=== PATIENT | male | born 1950 | race Asian ===

== ENCOUNTER 2017-06-19 13:25 | Inpatient (IN) | payer MEDICARE, MEDICAID ==
[~2017-06-19] VITALS: Ht 160 cm; Wt 60.6 kg
[2017-06-19] MEDS ORDERED: HALOPERIDOL 5 MG TABLET PO PRN (20:00)
[2017-06-19] MEDS ORDERED: LORazepam 2 MG TABLET PO PRN (20:00)
[2017-06-19 20:56] VITALS: BP 149/84
[2017-06-19 21:46] VITALS: BP 149/84
[2017-06-20 06:10] VITALS: BP 140/76
[2017-06-20 08:08] VITALS: BP 143/77
[2017-06-20 08:18] LABS: BASOPHILS % (AUTO) 0.9 % (0.0-2.0); HEMATOCRIT 27.4 % (41-53); HEMOGLOBIN 8.6 g/dL (13.5-17.5); LYMPHOCYTES # (AUTO) 1.7 K/uL (1.0-4.8); LYMPHOCYTES % (AUTO) 28.2 % (22.0-44.0); MEAN CORPUSCULAR HEMOGLOBIN 22.7 pg (26.0-34.0); MEAN CORPUSCULAR HGB CONC 31.5 G/dL (31.0-37.0); MEAN CORPUSCULAR VOLUME 72 fL (80-100); MONOCYTES # (AUTO) 0.6 K/uL (0.1-1.0); MONOCYTES % (AUTO) 9.3 % (2.0-9.0); NEUTROPHILS # (AUTO) 3.2 K/uL (1.8-7.7); NEUTROPHILS % (AUTO) 52.6 % (40.0-70.0); PLATELET COUNT (AUTO) 305 K/uL (150-450); RED CELL DISTRIBUTION WIDTH 21.4 % (11.5-14.5)
[2017-06-20 08:51] LABS: BILIRUBIN,TOTAL 0.5 mg/dL (0.1-1.0); CALCIUM, TOTAL 8.8 mg/dL (8.8-10.5); CHOL/HDL RATIO 2.8 (4.2-7.3); CREATININE 1.75 mg/dL (0.60-1.30); POTASSIUM 4.3 mmol/L (3.5-5.1); THYROID STIMULATING HORMONE 5.4 uIU/mL (0.36-3.74); TOTAL PROTEIN, SERUM 7.7 g/dL (6.4-8.2)
[2017-06-20 09:09] LABS: HEMOGLOBIN A1C 5.1 % (4.5-6.2)
[2017-06-20] MEDS: LISINOPRIL 10 MG TABLET PO SCH (09:20)
[2017-06-20] MEDS: OMEPRAZOLE 20 MG CAPSULE PO SCH (09:20)
[2017-06-20 10:44] LABS: RBC MORPHOLOGY COMMENT ABNORMAL RBC MORPH
[2017-06-20] MEDS ORDERED: ONDANSETRON HCL 4 MG TABLET PO PRN (10:45)
[2017-06-20] MEDS ORDERED: BENZOCAINE/MENTHOL LOZENGE MM PRN (10:45)
[2017-06-20] MEDS ORDERED: MAGNESIUM HYDROXIDE SUSPENSION 30 ML UDCUP PO PRN (10:45)
[2017-06-20] MEDS ORDERED: MAG HYDROX/AL HYDROX/SIMETH ES 30 ML SUSPENSION UDCUP PO PRN (10:45)
[2017-06-20] MEDS ORDERED: LOPERAMIDE HCL 2 MG CAPSULE PO PRN (10:45)
[2017-06-20] MEDS ORDERED: CloNIDine HCL 0.1 MG TABLET PO PRN (10:45)
[2017-06-20] MEDS ORDERED: BACITRACIN 28.4 GM OINTMENT TP PRN (10:45)
[2017-06-20] MEDS ORDERED: PETROLATUM,WHITE 71 GM JELLY TP PRN (10:45)
[2017-06-20] MEDS ORDERED: ALBUTEROL SULFATE HFA 90 MCG/PUFF 8 GM INHALER IH PRN (10:45)
[2017-06-20 16:22] VITALS: BP 138/69
[2017-06-21 00:10] VITALS: BP 136/77
[2017-06-21 06:10] VITALS: BP 132/79
[2017-06-21] MEDS: IBUPROFEN 600 MG TABLET PO PRN ×2 (06:15→21:11)
[2017-06-21] MEDS: LEVOTHYROXINE SODIUM 25 MCG TABLET PO SCH (06:38)
[2017-06-21 08:32] VITALS: BP 146/78
[2017-06-21 08:33] LABS: CALCIUM, TOTAL 8.5 mg/dL (8.8-10.5); CREATININE 1.71 mg/dL (0.60-1.30); POTASSIUM 3.9 mmol/L (3.5-5.1)
[2017-06-21] MEDS: OMEPRAZOLE 20 MG CAPSULE PO SCH (09:47)
[2017-06-21] MEDS: MULTIVITAMINS WITH MINERALS, THERAPEUTIC TABLET PO SCH (09:47)
[2017-06-21] MEDS: LISINOPRIL 10 MG TABLET PO SCH (09:47)
[2017-06-21 16:00] VITALS: BP 142/90
[2017-06-21 22:15] VITALS: BP 143/85
[2017-06-22 04:07] VITALS: BP 138/74
[2017-06-22] MEDS: IBUPROFEN 600 MG TABLET PO PRN ×2 (04:16→22:29)
[2017-06-22] MEDS: LEVOTHYROXINE SODIUM 25 MCG TABLET PO SCH (06:36)
[2017-06-22] MEDS: FERROUS SULFATE 325 MG EC TABLET PO SCH ×2 (06:36→16:07)
[2017-06-22 08:02] VITALS: BP 132/82
[2017-06-22 08:04] LABS: ALBUMIN 2.7 g/dL (3.4-5.0); CALCIUM, TOTAL 8.2 mg/dL (8.8-10.5); CREATININE 1.7 mg/dL (0.60-1.30); PHOSPHORUS 3.2 mg/dL (2.5-4.9); POTASSIUM 4.8 mmol/L (3.5-5.1)
[2017-06-22] MEDS: DIVALPROEX SODIUM 500 MG DR TABLET PO SCH ×2 (09:24→16:07)
[2017-06-22] MEDS: RisperiDONE 0.5 MG TABLET PO SCH ×2 (09:25→16:07)
[2017-06-22] MEDS: OMEPRAZOLE 20 MG CAPSULE PO SCH (09:25)
[2017-06-22] MEDS: MULTIVITAMINS WITH MINERALS, THERAPEUTIC TABLET PO SCH (09:25)
[2017-06-22] MEDS: LISINOPRIL 10 MG TABLET PO SCH (09:25)
[2017-06-22 17:58] VITALS: BP 127/75
[2017-06-22 22:30] VITALS: BP 130/79
[2017-06-23 03:41] VITALS: BP 146/79
[2017-06-23] MEDS: ACETAMINOPHEN 325 MG TABLET PO PRN ×2 (03:43→22:33)
[2017-06-23] MEDS: FERROUS SULFATE 325 MG EC TABLET PO SCH ×2 (06:11→16:32)
[2017-06-23] MEDS: LEVOTHYROXINE SODIUM 25 MCG TABLET PO SCH (06:11)
[2017-06-23 08:30] VITALS: BP 115/73
[2017-06-23] MEDS: OMEPRAZOLE 20 MG CAPSULE PO SCH (09:58)
[2017-06-23] MEDS: LISINOPRIL 10 MG TABLET PO SCH (09:59)
[2017-06-23] MEDS: RisperiDONE 1 MG TABLET PO SCH ×2 (09:59→16:32)
[2017-06-23] MEDS: DIVALPROEX SODIUM 500 MG DR TABLET PO SCH ×2 (09:59→16:32)
[2017-06-23] MEDS: MULTIVITAMINS WITH MINERALS, THERAPEUTIC TABLET PO SCH (09:59)
[2017-06-23] MEDS: IBUPROFEN 600 MG TABLET PO PRN (14:08)
[2017-06-23 14:09] VITALS: BP 120/76
[2017-06-23 16:31] VITALS: BP 115/65
[2017-06-24 01:51] VITALS: BP 138/87
[2017-06-24] MEDS: IBUPROFEN 600 MG TABLET PO PRN ×3 (01:56→18:47)
[2017-06-24] MEDS: LEVOTHYROXINE SODIUM 25 MCG TABLET PO SCH (06:39)
[2017-06-24] MEDS: FERROUS SULFATE 325 MG EC TABLET PO SCH ×2 (06:39→16:36)
[2017-06-24 08:40] VITALS: BP 138/72
[2017-06-24] MEDS: OMEPRAZOLE 20 MG CAPSULE PO SCH (08:42)
[2017-06-24] MEDS: DIVALPROEX SODIUM 500 MG DR TABLET PO SCH ×2 (08:42→16:36)
[2017-06-24] MEDS: LISINOPRIL 10 MG TABLET PO SCH (08:42)
[2017-06-24] MEDS: RisperiDONE 1 MG TABLET PO SCH ×2 (08:42→16:36)
[2017-06-24] MEDS: MULTIVITAMINS WITH MINERALS, THERAPEUTIC TABLET PO SCH (08:42)
[2017-06-24 12:12] VITALS: BP 140/70
[2017-06-24 16:30] VITALS: BP 142/80
[2017-06-25 01:20] VITALS: BP 115/74
[2017-06-25] MEDS: IBUPROFEN 600 MG TABLET PO PRN ×2 (01:25→08:51)
[2017-06-25 04:45] VITALS: BP 115/74
[2017-06-25] MEDS: LEVOTHYROXINE SODIUM 25 MCG TABLET PO SCH (06:37)
[2017-06-25] MEDS: FERROUS SULFATE 325 MG EC TABLET PO SCH ×2 (06:37→16:39)
[2017-06-25 08:07] VITALS: BP 132/72
[2017-06-25] MEDS: RisperiDONE 1 MG TABLET PO SCH ×2 (08:50→16:39)
[2017-06-25] MEDS: MULTIVITAMINS WITH MINERALS, THERAPEUTIC TABLET PO SCH (08:50)
[2017-06-25] MEDS: DIVALPROEX SODIUM 500 MG DR TABLET PO SCH ×2 (08:50→16:39)
[2017-06-25] MEDS: OMEPRAZOLE 20 MG CAPSULE PO SCH (08:50)
[2017-06-25] MEDS: LISINOPRIL 10 MG TABLET PO SCH (08:50)
[2017-06-25] MEDS: ACETAMINOPHEN 325 MG TABLET PO PRN (13:13)
[2017-06-25 13:14] VITALS: BP 130/76
[2017-06-25 16:00] VITALS: BP 140/78
[2017-06-26 02:10] VITALS: BP 117/75
[2017-06-26] MEDS: IBUPROFEN 600 MG TABLET PO PRN ×3 (02:13→21:25)
[2017-06-26] MEDS: LEVOTHYROXINE SODIUM 25 MCG TABLET PO SCH (05:55)
[2017-06-26] MEDS: FERROUS SULFATE 325 MG EC TABLET PO SCH ×2 (05:56→16:42)
[2017-06-26 08:34] VITALS: BP 144/68
[2017-06-26] MEDS: LISINOPRIL 10 MG TABLET PO SCH (08:41)
[2017-06-26] MEDS: DIVALPROEX SODIUM 500 MG DR TABLET PO SCH ×2 (08:41→16:41)
[2017-06-26] MEDS: MULTIVITAMINS WITH MINERALS, THERAPEUTIC TABLET PO SCH (08:41)
[2017-06-26] MEDS: OMEPRAZOLE 20 MG CAPSULE PO SCH (08:41)
[2017-06-26] MEDS: RisperiDONE 1 MG TABLET PO SCH ×2 (08:41→16:41)
[2017-06-26 11:16] VITALS: BP 124/83
[2017-06-26 12:16] VITALS: BP 120/75
[2017-06-26 16:31] VITALS: BP 133/81
[2017-06-27 03:49] VITALS: BP 124/78
[2017-06-27] MEDS: IBUPROFEN 600 MG TABLET PO PRN ×3 (03:51→16:36)
[2017-06-27] MEDS: FERROUS SULFATE 325 MG EC TABLET PO SCH ×2 (06:27→16:37)
[2017-06-27] MEDS: LEVOTHYROXINE SODIUM 25 MCG TABLET PO SCH (06:27)
[2017-06-27] MEDS: RisperiDONE 1 MG TABLET PO SCH ×2 (08:26→16:37)
[2017-06-27] MEDS: LISINOPRIL 10 MG TABLET PO SCH (08:26)
[2017-06-27] MEDS: OMEPRAZOLE 20 MG CAPSULE PO SCH (08:26)
[2017-06-27] MEDS: DIVALPROEX SODIUM 500 MG DR TABLET PO SCH ×2 (08:26→16:36)
[2017-06-27] MEDS: MULTIVITAMINS WITH MINERALS, THERAPEUTIC TABLET PO SCH (08:27)
[2017-06-27 09:26] VITALS: BP 122/75
[2017-06-27 16:30] VITALS: BP 131/81
[2017-06-27] MEDS: ZOLPIDEM TARTRATE 10 MG TABLET PO PRN (20:55)
[2017-06-27] MEDS: ACETAMINOPHEN 325 MG TABLET PO PRN (20:55)
[2017-06-28 01:01] VITALS: BP 125/77
[2017-06-28] MEDS: IBUPROFEN 600 MG TABLET PO PRN ×3 (02:26→18:35)
[2017-06-28] MEDS: FERROUS SULFATE 325 MG EC TABLET PO SCH ×2 (06:36→17:09)
[2017-06-28] MEDS: LEVOTHYROXINE SODIUM 25 MCG TABLET PO SCH (06:36)
[2017-06-28] MEDS: OMEPRAZOLE 20 MG CAPSULE PO SCH (08:04)
[2017-06-28] MEDS: LISINOPRIL 10 MG TABLET PO SCH (08:05)
[2017-06-28] MEDS: DIVALPROEX SODIUM 500 MG DR TABLET PO SCH ×2 (08:05→17:08)
[2017-06-28] MEDS: MULTIVITAMINS WITH MINERALS, THERAPEUTIC TABLET PO SCH (08:05)
[2017-06-28] MEDS: RisperiDONE 1 MG TABLET PO SCH ×2 (08:05→17:08)
[2017-06-28 08:58] VITALS: BP 137/77
[2017-06-28 16:26] VITALS: BP 130/73
[2017-06-28] MEDS: ZOLPIDEM TARTRATE 10 MG TABLET PO PRN (22:10)
[2017-06-29 01:15] VITALS: BP 136/78
[2017-06-29 03:14] VITALS: BP 133/83
[2017-06-29] MEDS: IBUPROFEN 600 MG TABLET PO PRN ×2 (03:18→10:28)
[2017-06-29] MEDS: LEVOTHYROXINE SODIUM 25 MCG TABLET PO SCH (06:39)
[2017-06-29] MEDS: FERROUS SULFATE 325 MG EC TABLET PO SCH ×2 (06:39→17:00)
[2017-06-29 08:07] VITALS: BP 138/75
[2017-06-29] MEDS: OMEPRAZOLE 20 MG CAPSULE PO SCH (09:17)
[2017-06-29] MEDS: RisperiDONE 1 MG TABLET PO SCH ×2 (09:17→17:00)
[2017-06-29] MEDS: LISINOPRIL 10 MG TABLET PO SCH (09:17)
[2017-06-29] MEDS: MULTIVITAMINS WITH MINERALS, THERAPEUTIC TABLET PO SCH (09:17)
[2017-06-29] MEDS: DIVALPROEX SODIUM 500 MG DR TABLET PO SCH ×2 (09:17→17:00)
[2017-06-29 16:34] VITALS: BP 125/70
[2017-06-30 01:08] VITALS: BP 133/81
[2017-06-30] MEDS: IBUPROFEN 600 MG TABLET PO PRN (01:11)
[2017-06-30] MEDS: FERROUS SULFATE 325 MG EC TABLET PO SCH ×2 (06:02→17:12)
[2017-06-30] MEDS: LEVOTHYROXINE SODIUM 25 MCG TABLET PO SCH (06:02)
[2017-06-30 08:44] VITALS: BP 146/79
[2017-06-30] MEDS: DIVALPROEX SODIUM 500 MG DR TABLET PO SCH ×2 (09:08→17:12)
[2017-06-30] MEDS: RisperiDONE 1 MG TABLET PO SCH ×2 (09:08→17:12)
[2017-06-30] MEDS: OMEPRAZOLE 20 MG CAPSULE PO SCH (09:08)
[2017-06-30] MEDS: LISINOPRIL 10 MG TABLET PO SCH (09:08)
[2017-06-30] MEDS: MULTIVITAMINS WITH MINERALS, THERAPEUTIC TABLET PO SCH (09:08)
[2017-06-30 16:09] VITALS: BP 118/82
[2017-07-01] VITALS: BP 103/71
[2017-07-01] MEDS: IBUPROFEN 600 MG TABLET PO PRN ×3 (00:01→20:29)
[2017-07-01] MEDS: LEVOTHYROXINE SODIUM 25 MCG TABLET PO SCH (06:34)
[2017-07-01] MEDS: FERROUS SULFATE 325 MG EC TABLET PO SCH ×2 (06:34→17:20)
[2017-07-01 08:11] VITALS: BP 128/74
[2017-07-01] MEDS: RisperiDONE 1 MG TABLET PO SCH ×2 (08:45→17:20)
[2017-07-01] MEDS: DIVALPROEX SODIUM 500 MG DR TABLET PO SCH ×2 (08:45→17:20)
[2017-07-01] MEDS: LISINOPRIL 10 MG TABLET PO SCH (08:45)
[2017-07-01] MEDS: MULTIVITAMINS WITH MINERALS, THERAPEUTIC TABLET PO SCH (08:45)
[2017-07-01] MEDS: OMEPRAZOLE 20 MG CAPSULE PO SCH (08:45)
[2017-07-01 16:13] VITALS: BP 136/80
[2017-07-02 03:32] VITALS: BP 130/68
[2017-07-02] MEDS: IBUPROFEN 600 MG TABLET PO PRN ×2 (03:35→15:15)
[2017-07-02] MEDS: FERROUS SULFATE 325 MG EC TABLET PO SCH ×2 (06:53→16:54)
[2017-07-02] MEDS: LEVOTHYROXINE SODIUM 25 MCG TABLET PO SCH (06:53)
[2017-07-02] MEDS: LISINOPRIL 10 MG TABLET PO SCH (08:28)
[2017-07-02] MEDS: RisperiDONE 1 MG TABLET PO SCH ×2 (08:28→16:54)
[2017-07-02] MEDS: MULTIVITAMINS WITH MINERALS, THERAPEUTIC TABLET PO SCH (08:28)
[2017-07-02] MEDS: DIVALPROEX SODIUM 500 MG DR TABLET PO SCH ×2 (08:28→16:54)
[2017-07-02] MEDS: OMEPRAZOLE 20 MG CAPSULE PO SCH (08:28)
[2017-07-02 08:34] VITALS: BP 139/67
[2017-07-02 09:30] LABS: CALCIUM, TOTAL 8.3 mg/dL (8.8-10.5); CREATININE 1.99 mg/dL (0.60-1.30); POTASSIUM 5.1 mmol/L (3.5-5.1)
[2017-07-02 16:53] VITALS: BP 147/77
[2017-07-03] MEDS: IBUPROFEN 600 MG TABLET PO PRN ×3 (00:02→16:17)
[2017-07-03 03:53] VITALS: BP 112/70
[2017-07-03] MEDS: FERROUS SULFATE 325 MG EC TABLET PO SCH ×2 (06:42→17:02)
[2017-07-03] MEDS: LEVOTHYROXINE SODIUM 25 MCG TABLET PO SCH (06:42)
[2017-07-03 08:07] VITALS: BP 118/74
[2017-07-03] MEDS: MULTIVITAMINS WITH MINERALS, THERAPEUTIC TABLET PO SCH (08:20)
[2017-07-03] MEDS: OMEPRAZOLE 20 MG CAPSULE PO SCH (08:20)
[2017-07-03] MEDS: RisperiDONE 1 MG TABLET PO SCH ×2 (08:20→16:16)
[2017-07-03] MEDS: DIVALPROEX SODIUM 500 MG DR TABLET PO SCH ×2 (08:20→16:16)
[2017-07-03] MEDS: LISINOPRIL 10 MG TABLET PO SCH (08:20)
[2017-07-03 16:21] VITALS: BP 127/71
[2017-07-04 00:40] VITALS: BP 122/71
[2017-07-04] MEDS: IBUPROFEN 600 MG TABLET PO PRN ×4 (01:56→22:21)
[2017-07-04] MEDS: FERROUS SULFATE 325 MG EC TABLET PO SCH ×2 (06:47→17:06)
[2017-07-04] MEDS: LEVOTHYROXINE SODIUM 25 MCG TABLET PO SCH (06:47)
[2017-07-04 08:23] VITALS: BP 138/81
[2017-07-04] MEDS: MULTIVITAMINS WITH MINERALS, THERAPEUTIC TABLET PO SCH (09:00)
[2017-07-04] MEDS: RisperiDONE 1 MG TABLET PO SCH ×2 (09:00→16:22)
[2017-07-04] MEDS: DIVALPROEX SODIUM 500 MG DR TABLET PO SCH ×2 (09:00→16:22)
[2017-07-04] MEDS: LISINOPRIL 10 MG TABLET PO SCH (09:00)
[2017-07-04] MEDS: OMEPRAZOLE 20 MG CAPSULE PO SCH (09:01)
[2017-07-04] MEDS ORDERED: COLCHICINE 0.6 MG TABLET PO ONE (10:00)
[2017-07-04] MEDS: ALLOPURINOL 100 MG TABLET PO SCH (11:19)
[2017-07-04 16:20] VITALS: BP 138/74
[2017-07-05 04:10] VITALS: BP 128/76
[2017-07-05] MEDS: ACETAMINOPHEN 325 MG TABLET PO PRN (04:14)
[2017-07-05 05:22] VITALS: BP 142/78
[2017-07-05] MEDS: IBUPROFEN 600 MG TABLET PO PRN ×2 (05:24→12:48)
[2017-07-05] MEDS: LEVOTHYROXINE SODIUM 25 MCG TABLET PO SCH (06:03)
[2017-07-05] MEDS: FERROUS SULFATE 325 MG EC TABLET PO SCH ×2 (06:03→17:31)
[2017-07-05] MEDS: DIVALPROEX SODIUM 500 MG DR TABLET PO SCH ×2 (08:57→17:31)
[2017-07-05] MEDS: ALLOPURINOL 100 MG TABLET PO SCH (08:57)
[2017-07-05] MEDS: OMEPRAZOLE 20 MG CAPSULE PO SCH (08:57)
[2017-07-05] MEDS: LISINOPRIL 10 MG TABLET PO SCH (08:58)
[2017-07-05] MEDS: COLCHICINE 0.6 MG TABLET PO SCH (08:58)
[2017-07-05] MEDS: RisperiDONE 1 MG TABLET PO SCH ×2 (08:58→17:31)
[2017-07-05] MEDS: MULTIVITAMINS WITH MINERALS, THERAPEUTIC TABLET PO SCH (08:58)
[2017-07-05 09:08] VITALS: BP 143/83
[2017-07-05 12:45] VITALS: BP 138/76
[2017-07-05 13:45] VITALS: BP 134/70
[2017-07-05 16:29] VITALS: BP 125/72
[2017-07-06 00:08] VITALS: BP 113/66
[2017-07-06] MEDS: IBUPROFEN 600 MG TABLET PO PRN (06:26)
[2017-07-06] MEDS: LEVOTHYROXINE SODIUM 25 MCG TABLET PO SCH (06:26)
[2017-07-06] MEDS: FERROUS SULFATE 325 MG EC TABLET PO SCH ×2 (06:26→16:10)
[2017-07-06] MEDS: RisperiDONE 1 MG TABLET PO SCH ×2 (08:55→16:10)
[2017-07-06] MEDS: COLCHICINE 0.6 MG TABLET PO SCH (08:55)
[2017-07-06] MEDS: MULTIVITAMINS WITH MINERALS, THERAPEUTIC TABLET PO SCH (08:55)
[2017-07-06] MEDS: DIVALPROEX SODIUM 500 MG DR TABLET PO SCH ×2 (08:55→16:10)
[2017-07-06] MEDS: OMEPRAZOLE 20 MG CAPSULE PO SCH (08:55)
[2017-07-06] MEDS: ALLOPURINOL 100 MG TABLET PO SCH (08:55)
[2017-07-06] MEDS: LISINOPRIL 10 MG TABLET PO SCH (08:55)
[2017-07-06 09:05] VITALS: BP 139/75
[2017-07-06 16:31] VITALS: BP 125/84
[2017-07-07 03:36] VITALS: BP 136/70
[2017-07-07] MEDS: HYPROMELLOSE 0.5% 15 ML OPHTHALMIC SOLUTION OU PRN ×2 (03:43→09:31)
[2017-07-07] MEDS: FERROUS SULFATE 325 MG EC TABLET PO SCH ×2 (07:20→16:49)
[2017-07-07] MEDS: LEVOTHYROXINE SODIUM 25 MCG TABLET PO SCH (07:20)
[2017-07-07] MEDS: COLCHICINE 0.6 MG TABLET PO SCH (09:31)
[2017-07-07] MEDS: LISINOPRIL 10 MG TABLET PO SCH (09:31)
[2017-07-07] MEDS: ALLOPURINOL 100 MG TABLET PO SCH (09:31)
[2017-07-07] MEDS: RisperiDONE 1 MG TABLET PO SCH ×2 (09:32→16:50)
[2017-07-07] MEDS: MULTIVITAMINS WITH MINERALS, THERAPEUTIC TABLET PO SCH (09:32)
[2017-07-07] MEDS: OMEPRAZOLE 20 MG CAPSULE PO SCH (09:32)
[2017-07-07] MEDS: DIVALPROEX SODIUM 500 MG DR TABLET PO SCH ×2 (09:32→16:49)
[2017-07-07 16:27] VITALS: BP 110/65
[2017-07-07] MEDS: IBUPROFEN 600 MG TABLET PO PRN (16:50)
[2017-07-07 19:45] VITALS: BP 141/73
[2017-07-07 20:33] VITALS: BP 105/69
[2017-07-07] MEDS: ACETAMINOPHEN 325 MG TABLET PO PRN (20:33)
[2017-07-08] MEDS: IBUPROFEN 600 MG TABLET PO PRN (00:35)
[2017-07-08 00:37] VITALS: BP 147/81
[2017-07-08] MEDS: HYPROMELLOSE 0.5% 15 ML OPHTHALMIC SOLUTION OU PRN ×2 (04:41→09:29)
[2017-07-08 06:26] LABS: BASOPHILS % (AUTO) 0.8 % (0.0-2.0); EOSINOPHILS % (AUTO) 10.1 % (1.0-6.0); HEMOGLOBIN 9.3 g/dL (13.5-17.5); LYMPHOCYTES # (AUTO) 1.7 K/uL (1.0-4.8); LYMPHOCYTES % (AUTO) 26.8 % (22.0-44.0); MEAN CORPUSCULAR HEMOGLOBIN 25.7 pg (26.0-34.0); MEAN CORPUSCULAR HGB CONC 32.1 G/dL (31.0-37.0); MEAN CORPUSCULAR VOLUME 80 fL (80-100); MONOCYTES # (AUTO) 0.8 K/uL (0.1-1.0); MONOCYTES % (AUTO) 13.1 % (2.0-9.0); NEUTROPHILS # (AUTO) 3.1 K/uL (1.8-7.7); NEUTROPHILS % (AUTO) 49.2 % (40.0-70.0); PLATELET COUNT (AUTO) 236 K/uL (150-450); RED BLOOD CELL COUNT(AUTO) 3.62 MIL/uL (4.50-5.90); RED CELL DISTRIBUTION WIDTH 29.3 % (11.5-14.5); WHITE BLOOD COUNT (AUTO) 6.3 K/uL (4.5-11.0)
[2017-07-08] MEDS: LEVOTHYROXINE SODIUM 25 MCG TABLET PO SCH (06:26)
[2017-07-08] MEDS: FERROUS SULFATE 325 MG EC TABLET PO SCH ×2 (06:27→16:03)
[2017-07-08 06:49] LABS: ALBUMIN 3.3 g/dL (3.4-5.0); BILIRUBIN,TOTAL 0.2 mg/dL (0.1-1.0); CALCIUM, TOTAL 8.3 mg/dL (8.8-10.5); CREATININE 2.4 mg/dL (0.60-1.30); POTASSIUM 5.5 mmol/L (3.5-5.1); TOTAL PROTEIN, SERUM 7.4 g/dL (6.4-8.2)
[2017-07-08 07:30] LABS: RBC MORPHOLOGY COMMENT ABNORMAL RBC MORPH
[2017-07-08 08:30] VITALS: BP 137/77
[2017-07-08] MEDS: MULTIVITAMINS WITH MINERALS, THERAPEUTIC TABLET PO SCH (09:25)
[2017-07-08] MEDS: OMEPRAZOLE 20 MG CAPSULE PO SCH (09:26)
[2017-07-08] MEDS: COLCHICINE 0.6 MG TABLET PO SCH (09:26)
[2017-07-08] MEDS: RisperiDONE 1 MG TABLET PO SCH ×2 (09:26→16:02)
[2017-07-08] MEDS: DIVALPROEX SODIUM 500 MG DR TABLET PO SCH ×2 (09:26→16:02)
[2017-07-08] MEDS: ALLOPURINOL 100 MG TABLET PO SCH (09:27)
[2017-07-08] MEDS ORDERED: SODIUM POLYSTYRENE SULFONATE 15 GM/60 ML SUSPENSION BOTTLE PO ONE (13:00)
[2017-07-08 19:47] VITALS: BP 128/72
[2017-07-09 01:17] VITALS: BP 106/71
[2017-07-09] MEDS: ACETAMINOPHEN 325 MG TABLET PO PRN ×2 (01:17→23:48)
[2017-07-09] MEDS: LEVOTHYROXINE SODIUM 25 MCG TABLET PO SCH (06:43)
[2017-07-09] MEDS: FERROUS SULFATE 325 MG EC TABLET PO SCH ×2 (06:45→16:12)
[2017-07-09 07:13] LABS: CALCIUM, TOTAL 8.2 mg/dL (8.8-10.5); CREATININE 2.29 mg/dL (0.60-1.30); MAGNESIUM 2.1 mg/dL (1.80-2.40); PHOSPHORUS 4.9 mg/dL (2.5-4.9); POTASSIUM 5.3 mmol/L (3.5-5.1); THYROID STIMULATING HORMONE 8.73 uIU/mL (0.36-3.74)
[2017-07-09 07:48] LABS: APPEARANCE,URINE CLEAR (CLEAR); GLUCOSE, URINE (UA) NEGATIVE (NEGATIVE); KETONES,URINE NEGATIVE (NEGATIVE); LEUKOCYTE ESTERASE ,URINE NEGATIVE (NEGATIVE); OCCULT BLOOD,URINE NEGATIVE (NEGATIVE); PROTEIN,URINE NEGATIVE (NEGATIVE)
[2017-07-09] MEDS ORDERED: SODIUM POLYSTYRENE SULFONATE 15 GM/60 ML SUSPENSION BOTTLE PO ONE (08:15)
[2017-07-09 08:30] VITALS: BP 125/76
[2017-07-09 08:32] LABS: RBC,URINE 0-2 /HPF (0-2); WBC,URINE 0-2 /HPF (0-5)
[2017-07-09 08:33] LABS: SQUAMOUS EPITHELIAL CELL,UR None Seen /LPF (None Seen)
[2017-07-09] MEDS: OMEPRAZOLE 20 MG CAPSULE PO SCH (08:50)
[2017-07-09] MEDS: DIVALPROEX SODIUM 500 MG DR TABLET PO SCH ×2 (08:50→16:11)
[2017-07-09] MEDS: COLCHICINE 0.6 MG TABLET PO SCH (08:51)
[2017-07-09] MEDS: ALLOPURINOL 100 MG TABLET PO SCH (08:51)
[2017-07-09] MEDS: RisperiDONE 1 MG TABLET PO SCH ×2 (08:51→16:12)
[2017-07-09] MEDS: HYPROMELLOSE 0.5% 15 ML OPHTHALMIC SOLUTION OU PRN ×3 (08:53→22:44)
[2017-07-09] MEDS: VITAMIN B COMP/VIT C/FOLIC ACID CAPSULE PO SCH (09:33)
[2017-07-09 19:35] VITALS: BP 132/61
[2017-07-09 23:49] VITALS: BP 138/72
[2017-07-10 05:47] LABS: CALCIUM, TOTAL 8.3 mg/dL (8.8-10.5); CREATININE 2.19 mg/dL (0.60-1.30); POTASSIUM 4.5 mmol/L (3.5-5.1)
[2017-07-10] MEDS: FERROUS SULFATE 325 MG EC TABLET PO SCH ×2 (06:49→16:32)
[2017-07-10] MEDS: LEVOTHYROXINE SODIUM 50 MCG TABLET PO SCH (06:49)
[2017-07-10] MEDS: OMEPRAZOLE 20 MG CAPSULE PO SCH (08:24)
[2017-07-10] MEDS: RisperiDONE 1 MG TABLET PO SCH ×2 (08:24→16:32)
[2017-07-10] MEDS: ALLOPURINOL 100 MG TABLET PO SCH (08:25)
[2017-07-10] MEDS: VITAMIN B COMP/VIT C/FOLIC ACID CAPSULE PO SCH (08:25)
[2017-07-10] MEDS: COLCHICINE 0.6 MG TABLET PO SCH (08:25)
[2017-07-10] MEDS: DIVALPROEX SODIUM 500 MG DR TABLET PO SCH ×2 (08:25→16:32)
[2017-07-10] MEDS: HYPROMELLOSE 0.5% 15 ML OPHTHALMIC SOLUTION OU PRN (08:26)
[2017-07-10 08:30] VITALS: BP 142/98
[2017-07-10 23:57] VITALS: BP 134/89
[2017-07-11] MEDS: ACETAMINOPHEN 325 MG TABLET PO PRN (00:17)
[2017-07-11] MEDS: HYPROMELLOSE 0.5% 15 ML OPHTHALMIC SOLUTION OU PRN (00:18)
[2017-07-11 00:23] VITALS: BP 152/82
[2017-07-11] MEDS: FERROUS SULFATE 325 MG EC TABLET PO SCH (06:56)
[2017-07-11] MEDS: LEVOTHYROXINE SODIUM 50 MCG TABLET PO SCH (06:56)
[2017-07-11 08:25] VITALS: BP 123/72
[2017-07-11] MEDS: RisperiDONE 1 MG TABLET PO SCH (09:07)
[2017-07-11] MEDS: OMEPRAZOLE 20 MG CAPSULE PO SCH (09:07)
[2017-07-11] MEDS: DIVALPROEX SODIUM 500 MG DR TABLET PO SCH (09:07)
[2017-07-11] MEDS: ALLOPURINOL 100 MG TABLET PO SCH (09:07)
[2017-07-11] MEDS: COLCHICINE 0.6 MG TABLET PO SCH (09:07)
[2017-07-11] MEDS: VITAMIN B COMP/VIT C/FOLIC ACID CAPSULE PO SCH (09:07)
[2017-07-11] MEDS ORDERED: ALLO100T PO (09:40)
[2017-07-11] MEDS ORDERED: DIVA500T35 PO (09:41)
[2017-07-11] MEDS ORDERED: COLC0.6T67 PO (09:41)
[2017-07-11] MEDS ORDERED: OMEP20 PO (09:43)
[2017-07-11] MEDS ORDERED: FERR-89 PO (09:43)
[2017-07-11] MEDS ORDERED: LEVO50TA11 PO (09:43)
[2017-07-11] MEDS ORDERED: RISP1 PO (09:44)
[2017-07-11] MEDS ORDERED: FOLI1CAP2 PO (09:44)
== END 2017-07-11 14:00 | disposition home or self-care (01) | DRG 750 ==
LOC: B2S 19:51 → 3EI 07-07 19:05
PROVIDERS: ADMIT Psychiatry & Neurology Psychiatry; ATTEND Psychiatry & Neurology Psychiatry
DX: F20.0 Paranoid schizophrenia (principal); N17.0 Acute kidney failure with tubular necrosis; E44.1 Mild protein-calorie malnutrition; I12.9 Hypertensive chronic kidney disease with stage 1 through stage 4 chronic kidney disease, or unspecified chronic kidney disease; E03.9 Hypothyroidism, unspecified; D50.9 Iron deficiency anemia, unspecified; E87.5 Hyperkalemia; K21.9 Gastro-esophageal reflux disease without esophagitis; N18.9 Chronic kidney disease, unspecified
CPT/HCPCS: 76770; 82570; 82607; 82746; 83036; 83540; 83550; 83735; 84100; 84300; 84439; 84443; 84540; 86592; 87081